=== PATIENT | female | born 1955 | race Caucasian/White ===

== ENCOUNTER 2022-04-25 08:43 | Inpatient (IN) ==
[2022-04-25] MEDS ORDERED: NITROGLYCERIN SL 0.4 MG/TAB TAB ONE (09:00)
[2022-04-25] MEDS ORDERED: LORazepam 1 MG/1 ML SYR IV STA (09:00)
[2022-04-25] MEDS ORDERED: ASPIRIN 81 MG CHEW PO STA (09:00)
[2022-04-25] MEDS ORDERED: NITROGLYCERIN SL 0.4 MG/TAB TAB SL STA (09:00)
[2022-04-25] MEDS ORDERED: ASPIRIN CHEW 324 MG ONE (09:01)
--- NOTE | 2022-04-25 09:01 | Emergency Department Note ---
Impression & Plan Acute ST elevation myocardial infarction (STEMI) of inferior wall ED Provider Note Name: LAQUITA SCHILLING Age: 67 Sex: F Arrives Via: Walk-In Informant: Patient, ED Provider: Carmelo Adler MD Chief Complaint: Chest pain Impression: As per impressions above Medical Decision Makin-year-old female with a history of diabetes and remote smoking history who recently was diagnosed with sinus infection and started on prednisone and Doxy are asked to evaluate a left-sided chest pain radiating to her neck associated with nausea, lightheadedness and mild shortness of breath. EKG on arrival consistent with inferior STEMI. Heart alert was called. Patient is quite anxious, hypertensive. She was given p.o. Ativan and sublingual nitro x3. She was furthermore given aspirin 324 mg p.o. Patient is significantly improved though still a bit anxious. Blood pressure is a bit on the high side but cardiology at bedside and wishes to take directly to [facility]. They will manage Brilinta/heparin and other medications from here. Throughout patient main taining airway patent was transferred to the [facility] for further management. Hospitalist was made aware that patient being taken to [facility] with planned admission afterwards. Patient is a bit hypertensive and tachycardic though there is no evidence of aortic dissection and she has good pulses throughout with unremarkable chest x- ray. I do not feel that CTA is indicated at this time given the other findings much more clearly consistent with acute inferior ND. Furthermore while she did have recent travel symptoms actually started prior to this and I do not feel this is consistent with PE. Labs did end up returning positive troponin following her transfer to the [facility]. Prior Medical Record and Triage/Nursing Notes reviewed by Me Additional history obtained from chart & Differentials:Cardiac ischemia, aortic dissection, pulmonary embolism, pneumothorax, pneumonia, pericarditis, myocarditis, esophageal rupture, GERD, cholecystitis, pancreatitis, musculoskeletal, as well as other pathologies. Vital Signs: reviewed and remarkable for hypertension, tachycardia Interventions: Aspirin 324 mg p.o., Ativan 1 mg p.o., sublingual nitroglycerin x3 Labs:Reviewed and remarkable for elevated troponin Imagin view chest x-ray no evidence of widened mediastinum and normal lung EKG:As per my interpretation. Indication. Chest pain. Normal sinus rhythm at 95 bpm and a QTC of 427. Inferior STEMI with reciprocal depressions. There is no ectopy. No previous EKG for comparison Cardiac/Tele Monitoring: Cardiac Monitoring: An Order was placed for continuous cardiac monitoring. The monitor shows a rate of 90 with a normal sinus rhythm. Consults:Dr. Selby of the interventional cardiology service. Patient taken directly to [facility] Plan: Disposition:Hospitalization. Condition: Critical History of Present Illness:67-year-old female arrives for evaluation of chest pain. Patient notes 3 to 4 days of gradually worsening left-sided chest pain. Heavy in nature and radiates to her left neck. She also notes she has had sinus congestion the last few days. She was seen by her PCP yesterday and started on doxycycline. This morning she notes symptoms were worse she was having some nausea and she was having a little bit of trouble catching her breath. No medications prior to arrival. The exertion made symptoms worse rest seems to make slightly better. Patient denies any history of cardiac disease but does note a history of a cardiac cath a few years ago. She has a history of diabetes and no significant family history of cardiac disease. Patient does have a history of smoking but quit 20 years ago. She denies any tearing pain, back pain, headache, syncope, abdominal pain, vomiting, urinary/bowel symptoms, leg swelling, calf pain or other concerning signs or symptoms. She has no history of PE nor known aortic disorder. ROS: See above HPI for pertinent positives & negatives. A total of 10 systems reviewed and were otherwise negative. Past Medical History: Diabetes Past Surgical History: None Family History: Denies familial history of cardiac disease Social History: Retired contract accountant. . Quit smoking at age 49 Home Medications: Diabetes medications including Jardiance Allergies: Denies drug allergies Vitals:Blood Pressure: 170/100, Pulse 110, RR 22, T 37.0C, O2 98% on RA Physical Exam: GENERAL: Patient is severaly anxious appearing and in moderate distress. EYES: No scleral icterus, unremarkable pupils. ENT: Mucous membranes moist, no nasal congestion. NECK: No masses appreciated, nomeningismus, trachea is midline. RESPIRATORY: Moderate tachypnea though not dyspnea. Clear to auscultation and equal bilaterally. No wheeze, no rhonchi. CARDIOVASCULAR: Tachy.No murmurs, rubs, gallops appreciated. GASTROINTESTINAL: Abdomen soft, non-tender, no peritonitis.Bowel sounds positive.No masses appreciated. BACK: No midline tenderness, no CVA tenderness EXTREMITIES: Normal motion all extremities, no cyanosis, no edema. NEUROLOGIC: Alert and oriented, no acute motor or sensory deficits, no focal weakness, cranial nerves grossly intact. SKIN: No rash, no jaundice, no diaphoresis. PSYCH: Appropriately anxious GCS: 15 ED Course: Times/Reassessments: Multiple repeat evaluations at bedside management of patient throughout ED stay and consulting with maintenance superintendent at bedside. Critical Care: I have personally spent 40 minutes of critical care time in the direct management of this patient. Acute STEMI requiring heart alert and transfer to [facility]. This was a life/limb threatening event. This 40 minutes is in excess of all separately billable procedures. Carmelo Adler MD Past Med/Surg History Social History Smoking Status: Former smoker Tobacco Type: Cigarettes Cigarettes Per Day: 8 x 30 years; Smoking End Date: 2003; Do You Dip or Chew Tobacco: No; Hx Alcohol Use: Yes Alcohol type: beer Hx Substance Use: No Preferred Language: Polish Communication Ability: Effective Hand Rug Cleaner Required: No Beliefs That Will Affect Care: None Current Living Situation: Alone Other Information That Helps Us Care for You: No Feels Safe at Home: Yes Safety Concerns: Feels Safe At This Time Assistive Devices: None Allergies Allergies Allergy/AdvReac Type Severity Reaction Status Date / Time No Known Allergies Allergy Unverified 04/25/22 12:24 Results & Data (ED) Vital Signs Vital Signs - 24 hr 04/25/22 08:54 04/25/22 08:54 04/25/22 09:00 Temperature Temperature Source Pulse Rate 110 H Pulse Rate [Radial] Pulse Rate from SpO2 Sensor Respiratory Rate 24 Respiratory Effort / Characteristics Non-Labored Spontaneous Respiratory Depth Respiratory Pattern Blood Pressure 204/83 H Blood Pressure [Left Arm] Blood Pressure Mean 123 Blood Pressure Mean [Left Arm] Blood Pressure Position [Left Arm] Pulse Oximetry 99 99 Oxygen Delivery Method Room Air Room Air Nasal Cannula Oxygen Flow Rate 2 Sepsis Recent Fever Within 48 Hours No Sepsis New/Unexplained Change in Mental Status N/A Sepsis Action Taken by Nursing No Action Required 04/25/22 09:00 04/25/22 09:05 04/25/22 09:10 Temperature Temperature Source Pulse Rate 108 H 100 H 93 H Pulse Rate [Radial] Pulse Rate from SpO2 Sensor 107 H 102 H Respiratory Rate 21 20 21 Respiratory Effort / Characteristics Respiratory Depth Respiratory Pattern Blood Pressure 217/123 H 191/98 H Blood Pressure [Left Arm] Blood Pressure Mean 154 129 Blood Pressure Mean [Left Arm] Blood Pressure Position [Left Arm] Pulse Oximetry 99 95 Oxygen Delivery Method Oxygen Flow Rate Sepsis Recent Fever Within 48 Hours Sepsis New/Unexplained Change in Mental Status Sepsis Action Taken by Nursing 04/25/22 09:15 04/25/22 09:15 04/25/22 10:29 Temperature 37.0 C Temperature Source Oral Pulse Rate 93 H Pulse Rate [Radial] 86 Pulse Rate from SpO2 Sensor Respiratory Rate 19 14 Respiratory Effort / Characteristics Non-Labored Spontaneous Respiratory Depth Normal Respiratory Pattern Regular Blood Pressure 206/103 H Blood Pressure [Left Arm] 143/84 H Blood Pressure Mean 137 Blood Pressure Mean [Left Arm] 103 Blood Pressure Position [Left Arm] Lying Pulse Oximetry 94 Oxygen Delivery Method Room Air Oxygen Flow Rate Sepsis Recent Fever Within 48 Hours Sepsis New/Unexplained Change in Mental Status Sepsis Action Taken by Nursing Laboratory Data Result diagrams: 04/26/22 06:51 04/26/22 06:51 Lab Results 04/25/22 04/25/22 04/25/22 Range/Units 09:03 09:03 09:03 WBC 9.51 (4.8-10.8) K/ul RBC 4.56 (3.93-5.22) M/uL Hgb 13.3 (12.0-16.0) g/dl Hct 40.0 (34.1-44.9) % MCV 87.7 (80.0-100.0) fL MCH 29.2 (25.0-34.0) pg MCHC 33.3 (32.0-36.0) g/dL RDW Std Deviation 39.8 (36.4-46.3) fL RDW Coeff of Liliana 12.3 (11.5-14.5) % Plt Count 322 (130-400) K/uL MPV 9.8 (9.4-12.3) fL Immature Gran % (Auto) 0.3 % Neut % (Auto) 74.4 % Lymph % (Auto) 16.3 % [place] % (Auto) 7.3 % Eos % (Auto) 1.5 % Baso % (Auto) 0.2 % Neut # (Auto) 7.08 H (1.4-6.5) K/uL Lymph # (Auto) 1.55 (1.2-3.4) K/uL [place] # (Auto) 0.69 (0.24-0.82) K/uL Eos # (Auto) 0.14 (0-0.50) K/uL Baso # (Auto) 0.02 (0-0.2) K/uL Immature Gran # (Auto) 0.03 H (0.00-0.02) K/uL PT 11.3 (9.0-12.0) Seconds INR 1.1 (0.9-1.1) APTT 29.7 (21.0-31.0) Seconds PTT Ratio 1.1 Activ Coag Time Kaolin (94-140) SECONDS Sodium 139 (136-145) mmol/L Potassium 4.0 (3.5-5.1) mmol/L Chloride 104 (98-107) mmol/L Carbon Dioxide 27 (21-32) mmol/L Anion Gap 8 (3-11) BUN 12 (6-23) mg/dl Creatinine 0.65 (0.6-1.2) mg/dl Est Cr Clr Drug Dosing 93.7 ml/min Est GFR ( Amer) 105.7 ml/min Est GFR (Non-Af Amer) 91.2 ml/min BUN/Creatinine Ratio 18.5 (10-20) Glucose 187 H (70-99(Fasting)) mg/dl Calcium 9.7 (8.5-10.1) mg/dl Magnesium 2.2 (1.7-2.4) mg/dl Total Bilirubin 0.6 (0.2-1.0) mg/dl Direct Bilirubin 0.2 (0-0.2) mg/dl AST 52 H (13-39) U/L ALT 22 (7-52) U/L Alkaline Phosphatase 56 (34-104) U/L Troponin I High Sens 6699.6 H* (0-14) pg/ml Total Protein 7.8 (6.0-8.3) gm/dl Albumin 4.5 (3.4-5.0) gm/dl Lipase 9 L (11-82) U/L SARS-CoV-2 (PCR) (Negative) Influenza Type A (PCR) (Neg) Influenza Type B (PCR) (Neg) RSV (RT-PCR) (Neg) 04/25/22 04/25/22 Range/Units 09:09 09:59 WBC (4.8-10.8) K/ul RBC (3.93-5.22) M/uL Hgb (12.0-16.0) g/dl Hct (34.1-44.9) % MCV (80.0-100.0) fL MCH (25.0-34.0) pg MCHC (32.0-36.0) g/dL RDW Std Deviation (36.4-46.3) fL RDW Coeff of Liliana (11.5-14.5) % Plt Count (130-400) K/uL MPV (9.4-12.3) fL Immature Gran % (Auto) % Neut % (Auto) % Lymph % (Auto) % [place] % (Auto) % Eos % (Auto) % Baso % (Auto) % Neut # (Auto) (1.4-6.5) K/uL Lymph # (Auto) (1.2-3.4) K/uL [place] # (Auto) (0.24-0.82) K/uL Eos # (Auto) (0-0.50) K/uL Baso # (Auto) (0-0.2) K/uL Immature Gran # (Auto) (0.00-0.02) K/uL PT (9.0-12.0) Seconds INR (0.9-1.1) APTT (21.0-31.0) Seconds PTT Ratio Activ Coag Time Kaolin 305 H (94-140) SECONDS Sodium (136-145) mmol/L Potassium (3.5-5.1) mmol/L Chloride (98-107) mmol/L Carbon Dioxide (21-32) mmol/L Anion Gap (3-11) BUN (6-23) mg/dl Creatinine (0.6-1.2) mg/dl Est Cr Clr Drug Dosing ml/min Est GFR ( Amer) ml/min Est GFR (Non-Af Amer) ml/min BUN/Creatinine Ratio (10-20) Glucose (70-99(Fasting)) mg/dl Calcium (8.5-10.1) mg/dl Magnesium (1.7-2.4) mg/dl Total Bilirubin (0.2-1.0) mg/dl Direct Bilirubin (0-0.2) mg/dl AST (13-39) U/L ALT (7-52) U/L Alkaline Phosphatase (34-104) U/L Troponin I High Sens (0-14) pg/ml Total Protein (6.0-8.3) gm/dl Albumin (3.4-5.0) gm/dl Lipase (11-82) U/L SARS-CoV-2 (PCR) NEGATIVE (Negative) Influenza Type A (PCR) Negative (Neg) Influenza Type B (PCR) Negative (Neg) RSV (RT-PCR) Negative (Neg) Administered Medications Acetaminophen (Acetaminophen 325 Mg Tab) 650 mg PO Q4H PRN PRN Reason: MILD Pain (Scale 1,2,3) Stop: 05/25/22 10:22 Last Admin: 04/26/22 00:48 Dose: 650 mg Documented By: Admin: 04/25/22 16:19 Dose: 650 mg Documented By: SHAN Aspirin (Aspirin 81 Mg Ectab) 81 mg PO [facility] Stop: 05/26/22 08:59 Last Admin: 04/26/22 08:13 Dose: 81 mg Documented By: TONNY Atorvastatin Calcium (Atorvastatin 40 Mg Tab) [facility] Stop: 05/26/22 08:59 Last Admin: 04/26/22 08:12 Dose: 80 mg Documented By: TONNY Cefdinir (Cefdinir 300 Mg Cap) 300 mg PO BID [facility] Stop: 05/05/22 20:59 Last Admin: 04/26/22 08:12 Dose: 300 mg Documented By: Admin: 04/25/22 19:57 Dose: 300 mg Documented By: DRE Insulin Aspart (Insulin Aspart Per Unit) 0 units SC ACHS [facility] Stop: 05/25/22 11:29 Last Admin: 04/25/22 21:28 Dose: 2 units Documented By: DRE Co-signed By: FLORA Admin: 04/25/22 17:13 Dose: 4 units Documented By: SHAN Co-signed By: SARAH Admin: 04/25/22 13:09 Dose: 6 units Documented By: SHAN Co-signed By: Losartan Potassium (Losartan Potassium 25 Mg Tab) [facility] Stop: 05/26/22 08:59 Last Admin: 04/26/22 08:12 Dose: 25 mg Documented By: TONNY Metoprolol Tartrate (Metoprolol Tartrate 25 Mg Tab) 12.5 mg PO Q8 NOMAN Stop: 05/25/22 13:59 Last Admin: 04/26/22 06:19 Dose: 12.5 mg Documented By: Admin: 04/25/22 21:57 Dose: 12.5 mg Documented By: Admin: 04/25/22 13:41 Dose: 12.5 mg Documented By: SHAN Ondansetron HCl (Ondansetron Inj 2 Mg/Ml 2 Ml Vial) 4 mg IV Q6H PRN PRN Reason: Nausea And Vomiting Stop: 05/25/22 10:22 Last Admin: 04/25/22 13:41 Dose: 4 mg Documented By: SHAN Pantoprazole Sodium (Pantoprazole 40 Mg Tab) 40 mg PO DAILY NOMAN Stop: 05/25/22 12:44 Last Admin: 04/26/22 08:12 Dose: 40 mg Documented By: Admin: 04/25/22 13:41 Dose: 40 mg Documented By: SHAN Ticagrelor (Ticagrelor 90 Mg Tab) 90 mg PO BID [facility] Stop: 05/25/22 20:59 Last Admin: 04/26/22 08:12 Dose: 90 mg Documented By: Admin: 04/25/22 21:58 Dose: 90 mg Documented By: DRE Discontinued Medications Aspirin (Aspirin 81 Mg Chew) 324 mg PO NOW STA Stop: 04/25/22 09:01 Last Admin: 04/25/22 09:05 Dose: Not Given Documented By: LYN Aspirin (Aspirin Chew 324 Mg) Confirm Administered Dose 324 mg .ROUTE .STK-MED ONE Stop: 04/25/22 09:02 Last Admin: 04/25/22 09:04 Dose: 324 mg Documented By: LYN Atropine Sulfate (Atropine Sulfate 0.1 Mg/Ml 10ml Syr) Confirm Administered Dose 1 mg IV .STK-MED ONE Stop: 04/25/22 09:40 Last Admin: 04/25/22 10:15 Dose: Not Given Documented By: MAYA Fentanyl Citrate (Fentanyl Citrate 100 Mcg/2 Ml Vial) Confirm Administered Dose 100 mcg .ROUTE .STK-MED ONE Stop: 04/25/22 09:17 Last Increment: 04/25/22 10:12 Dose: 50 mcg Documented By: MAYA Heparin Sodium (Porcine) (Heparin (Porcine) 1000 Unit/Ml 10 Ml ([facility] Use Only)) Confirm Administered Dose 10,000 units .ROUTE .STK-MED ONE Stop: 04/25/22 09:17 Last Admin: 04/25/22 10:12 Dose: Not Given Documented By: MAYA Heparin Sodium (Porcine) (Heparin Sod (Porcine) 1000 Unit/Ml) Confirm Administered Dose 1,000 units .ROUTE .STK-MED ONE Stop: 04/25/22 09:19 Last Admin: 04/25/22 10:14 Dose: 8,000 units Documented By: MAYA Co-signed By: TLF Heparin Sodium/Sodium Chloride (Heparin In Nss Infusion 1000 Unit/500 Ml (2 U/Ml) Bag) Confirm Administered Dose 3,000 units IV .STK-MED ONE Stop: 04/25/22 09:17 Last Admin: 04/25/22 10:13 Dose: 3,000 units Documented By: MAYA Lorazepam (Lorazepam 1 Mg/1 Ml Syr) 1 mg IV NOW STA; Protocol Stop: 04/25/22 09:01 Last Admin: 04/25/22 13:11 Dose: Not Given Documented By: SHAN Lorazepam (Lorazepam 1 Mg Tab) 1 mg SL NOW STA Stop: 04/25/22 09:05 Last Admin: 04/25/22 09:16 Dose: 1 mg Documented By: LYN Midazolam HCl (Midazolam Hcl 1 Mg/Ml 2ml Vial) Confirm Administered Dose 2 mg .ROUTE .STK-MED ONE Stop: 04/25/22 09:17 Last Increment: 04/25/22 10:13 Dose: 2 mg Documented By: MAYA Midazolam HCl (Midazolam Hcl 1 Mg/Ml 2ml Vial) Confirm Administered Dose 2 mg .ROUTE .STK-MED ONE Stop: 04/25/22 09:45 Last Admin: 04/25/22 10:15 Dose: Not Given Documented By: MAYA Nicardipine HCl (Nicardipine Hcl Inj 2.5 Mg/Ml 10 Ml Amp) Confirm Administered Dose 25 mg .ROUTE .STK-MED ONE Stop: 04/25/22 09:17 Last Admin: 04/25/22 10:13 Dose: 25 mg Documented By: MAYA Nitroglycerin (Nitroglycerin Sl 0.4 Mg/Tab Tab) 0.4 mg SL NOW STA Stop: 04/25/22 09:01 Last Admin: 04/25/22 09:04 Dose: 0.4 mg Documented By: LYN Nitroglycerin (Nitroglycerin Sl 0.4 Mg/Tab Tab) Confirm Administered Dose 0.4 mg .ROUTE .STK-MED ONE Stop: 04/25/22 09:01 Last Admin: 04/25/22 09:04 Dose: Not Given Documented By: LYN Nitroglycerin/Dextrose (Nitroglycerin/D5w 100mcg/Ml 20ml Syr) Confirm Administered Dose 2,000 mcg .ROUTE .STK-MED ONE Stop: 04/25/22 09:17 Last Admin: 04/25/22 10:14 Dose: 2,000 mcg Documented By: MAYA Ticagrelor (Ticagrelor 90 Mg Tab) Confirm Administered Dose 180 mg .ROUTE .STK- MED ONE Stop: 04/25/22 09:36 Last Admin: 04/25/22 10:15 Dose: 180 mg Documented By: MAYA Discharge Plan Visit Data Chief Complaint: Chest Pain Stated Complaint: CHEST PAINS ED Provider: Carmelo Adler Discharge Problem: Acute ST elevation myocardial infarction (STEMI) of inferior wall Patient Disposition: Admitted As Inpatient Discharge Instructions Interventions: ED Discharge Assessment Last Done: 04/25/22 09:33
[2022-04-25] MEDS ORDERED: LORazepam 1 MG TAB SL STA (09:04)
[2022-04-25] MEDS ORDERED: niCARdipine HCL INJ 2.5 MG/ML 10 ML AMP ONE (09:16)
[2022-04-25] MEDS ORDERED: MIDAZOLAM HCL 1 MG/ML 2ML VIAL ONE ×2 (09:16→09:44)
[2022-04-25] MEDS ORDERED: NITROGLYCERIN/D5W 100MCG/ML 20ML SYR ONE (09:16)
[2022-04-25] MEDS ORDERED: fentaNYL citrate 100 MCG/2 ML VIAL ONE (09:16)
[2022-04-25] MEDS ORDERED: HEPARIN (PORCINE) 1000 UNIT/ML 10 ML (CATH LAB USE ONLY) ONE (09:16)
[2022-04-25 09:17] LABS: Basophils # (auto) 0.02 K/uL (0-0.2); Basophils % (auto) 0.2 %; Eosinophils # (auto) 0.14 K/uL (0-0.50); Eosinophils % (auto) 1.5 %; Hemoglobin 13.3 g/dl (12.0-16.0); Immature Granulocytes # (auto) 0.03 K/uL (0.00-0.02); Immature Granulocytes % (auto) 0.3 %; Lymphocytes # (auto) 1.55 K/uL (1.2-3.4); Lymphocytes % (auto) 16.3 %; Mean Corpuscular Hemoglobin 29.2 pg (25.0-34.0); Mean Corpuscular Hgb Conc 33.3 g/dL (32.0-36.0); Mean Corpuscular Volume 87.7 fL (80.0-100.0); Mean Platelet Volume 9.8 fL (9.4-12.3); Monocytes # (auto) 0.69 K/uL (0.24-0.82); Monocytes % (auto) 7.3 %; Neutrophils # (auto) 7.08 K/uL (1.4-6.5); Neutrophils % (auto) 74.4 %; Platelet Count 322 K/uL (130-400); RDW Coefficient of Variation 12.3 % (11.5-14.5); RDW Standard Deviation 39.8 fL (36.4-46.3); Red Blood Count 4.56 M/uL (3.93-5.22); White Blood Count 9.51 K/ul (4.8-10.8)
[2022-04-25] MEDS ORDERED: HEPARIN SOD (PORCINE) 1000 UNIT/ML ONE (09:18)
[2022-04-25 09:29] LABS: INR 1.1 (0.9-1.1); Partial Thromboplastin Ratio 1.1; Partial Thromboplastin Time 29.7 Seconds (21.0-31.0); Prothrombin Time 11.3 Seconds (9.0-12.0)
--- NOTE | 2022-04-25 09:30 | XRay Report ---
SINGLE VIEW CHEST CLINICAL HISTORY: Atypical chest pain. FINDINGS: An AP, portable, upright chest radiograph is obtained. No prior studies are available for c omparison at the time of dictation. The cardiomediastinal silhouette is top normal for projection not ing atherosclerotic calcification of the thoracic aorta. The pulmonary vasculature is noncontrast. Th ere are mild lower lobe opacity. No large pleural effusion or pneumothorax is seen. The skeletal stru ctures are osteopenic. The bony thorax is grossly intact. Calcific tendinopathy is seen in the left s houlder. IMPRESSION: Mild lower lobe opacities likely represent atelectasis. Clinical correlation will be requ ired.. ACT 112: Negative or not required by law. Electronically signed by: Frankie Navarro M.D. 04/25/2022 9:28 AM
[2022-04-25] MEDS ORDERED: TICAGRELOR 90 MG TAB ONE (09:35)
--- NOTE | 2022-04-25 09:38 | Cardiology Consultation ---
Date of Consultation April 25, 2022 Assessment & Plan (1) Acute MA: Presentation consistent with inferior STEMI and recommend proceeding with emergent cardiac catheterization and likely primary PCI. No apparent contraindications to procedure. Discussed risks, benefits, alternatives of procedure with patient and they are willing to proceed. Further recommendations pending findings of coronary angiography. History of Present Illness History of Present Illness 67-year-old woman here with acute chest pain and ECG concerning for acute MA. Patient seen emergently in the ED after heart alert activated on arrival. Denies prior cardiac history. Does state that she had a cardiac catheterization in [facility] approximately a year and a half ago for atypical chest symptoms. Was told "they did not find anything." Cardiac risk factors include type 2 diabetes, dyslipidemia. Non-smoker, no family history of premature CAD. No other active medical issues. She endorses stuttering chest pain for the last 4 to 5 days. Saw her PCP and diagnosed with sinus infection. This morning felt terrible all over with chest pain radiating up into her jaw. ECG on arrival showed sinus rhythm with inferior ST elevations with reciprocal ST depressions anteriorly. Hypertensive up into the 210s. Pain improved with sublingual nitroglycerin x2. Given aspirin, heparin in ED. Social history: Here visiting from [place] for [place]. Works part-time in finance. Previously worked for [employer]. Lifelong non-smoker. Patient History Social History Smoking Status: Former smoker Tobacco Type: Cigarettes Feels Safe at Home: Yes Review of Systems Review of Systems: Not completed in the setting of emergent situation Physical Exam Physical Exam: General: Uncomfortable, flushed HEENT: Sclerae anicteric Lungs: Clear to auscultation anteriorly Cardiac: Regular rate and rhythm, no murmurs. Vascular: 2+ radial Abdomen: Soft, nontender Extremities: Well perfused, no peripheral edema Neuro: Nonfocal Psych: Alert orient x3, normal affect and mood Results & Data ([facility]) Vital Signs (Past 12 Hours) Vital Signs Pulse Resp BP Pulse Ox O2 Del Method O2 Flow Rate 04/25/22 09:15 206/103 H 04/25/22 09:15 93 H 19 04/25/22 09:10 93 H 21 04/25/22 09:05 100 H 20 191/98 H 95 04/25/22 09:00 108 H 21 217/123 H 99 04/25/22 09:00 Nasal Cannula 2 04/25/22 08:54 99 Room Air 04/25/22 08:54 110 H 24 204/83 H 99 Room Air PG Care Time/CCT Total # of Minutes Spent Total Time Spent with Patient: Total time spent is greater than 50% in coordination of care (as documented) at patient's floor/unit and/or counseling patient: Coding Level of Care Code 86756 Initial Inpt Care Lvl 3 Diagnoses Acute MA I21.9
[2022-04-25] MEDS ORDERED: ATROPINE SULFATE 0.1 MG/ML 10ML SYR IV ONE (09:39)
--- NOTE | 2022-04-25 09:39 | Pre Anesthesia Assessment ---
Date of Service April 25, 2022 Pre Sedation Assessment Vital Signs Pulse Resp BP Pulse Ox O2 Del Method O2 Flow Rate 04/25/22 09:15 206/103 H 04/25/22 09:15 93 H 19 04/25/22 09:10 93 H 21 04/25/22 09:05 100 H 20 191/98 H 95 04/25/22 09:00 108 H 21 217/123 H 99 04/25/22 09:00 Nasal Cannula 2 04/25/22 08:54 99 Room Air 04/25/22 08:54 110 H 24 204/83 H 99 Room Air Cardiovascular RRR, no murmur, no edema Respiratory normal respiratory effort, lungs clear to auscultation Pre-Sedation Airway Assessment Smoking Status: Former smoker Hx Sleep Apnea: No Hx Difficult Intubation: No Short, Thick Neck: No Thyromental Distance: > or= 3.5 Finger Breadths Oral Cavity: + WNL Mallampati Class: III Procedure Planning Contraindications for Sedation: none Current Medications Reviewed: Yes Notes The planned sedation has been discussed with the patient. Informed Consent was obtained. I have identified the patient, determined the appropriateness of sedation and have assessed the patient immediately prior to the procedure. All medicine(s) and interventions are by my order.
[2022-04-25 09:44] LABS: Albumin Level 4.5 gm/dl (3.4-5.0); BUN Creatinine Ratio 18.5 (10-20); Bilirubin Direct 0.2 mg/dl (0-0.2); Bilirubin,Total 0.6 mg/dl (0.2-1.0); Calcium 9.7 mg/dl (8.5-10.1); Creatinine Clr Calc Pharmacy 93.7 ml/min; Est GFR (African American) 105.7 ml/min; Est GFR (Non-African American) 91.2 ml/min; Magnesium 2.2 mg/dl (1.7-2.4); Total Protein 7.8 gm/dl (6.0-8.3)
[2022-04-25 09:55] LABS: Troponin I High Sensitivity 6699.6 pg/ml (0-14)
[2022-04-25 10:04] LABS: Influenza A virus by PCR Negative (Neg); Influenza B virus by PCR Negative (Neg); RSV by PCR Negative (Neg); SARS CoV2 RNA(COVID-19) Ceph NEGATIVE (Negative)
[2022-04-25] MEDS ORDERED: ONDANSETRON INJ 2 MG/ML 2 ML VIAL IV PRN ×2 (10:23→11:20)
--- NOTE | 2022-04-25 10:29 | History & Physical Report ---
Date of Service April 25, 2022 Assessment & Plan (1) Acute AK: Plan: Patient presenting with a acute IWMI had a single-vessel drug-eluting stent placed in the mid RCA Patient was placed on dual antiplatelet agents (asa and brilinta chosen) . Her blood pressure is elevated on presentation begun on metoprolol plus cozaar and had pravastatin escalated to atorvastatin for secondary risk prevention (2) Diabetes: Plan: Patient takes Jardiance and Alogliptin, [facility] [place], presenting blood sugar was 187 Patient be placed on a diabetic diet and sliding scale (3) Sinusitis: Plan: will be on po cefdinir Plan scd for DVT prevention History of Present Illness Primary Care Provider: NO PCP 67-year-old female 3 to 4 days of gradually worsening left-sided chest pain. Heavy in quality and radiates to her left neck. She also notes she has had sinus congestion the last few days. She was seen by her PCP yesterday and started on doxycycline. This morning she notes symptoms were worse she was having some nausea and she was having a little bit of trouble catching her breath. initial troponin was markedly elevated to 6699 and was evaluated by interventional cardiology and taken to the Cardiac cath lab nurse. Past Med/Surg History Social History Smoking Status: Former smoker Tobacco Type: Cigarettes Feels Safe at Home: Yes Review of Systems Review of Systems: Mild distress and fatigue no headache, no visual changes did have some sinus pain and drainage no speech or swallowing issues chest pain, heavy or pressure Complains of shortness of breath, without cough or wheezes no abdominal pain, nausea or vomiting, diarrhea or constipation no dysuria, hematuria or frequency no focal joint pain or swelling no back pain, CVA tenderness or radicular pain no bruising, bleeding or rashes no focal signs of weakness or numbness or altered sensation no complaints of anxiety or depression.. Physical Exam Physical Exam: The patient appeared well nourished and normally developed. Vital signs as documented. Head exam is normocephalic atraumatic Neck is without JVD, thyromegaly, or carotid bruits. Lungs are clear to auscultation, no focal loss of breath sounds Cardiac exam, Rhythm is regular.. No murmurs, rubs or gallops. Abdominal exam reveals normal bowel sounds, soft non tender, no masses Extremities right wrist has t band in place, good distal cap refill and sensation Neurologic exam is alert and oriented, no focal loss of strength or sensation Psychologically is without concerns for anxiety or depression.. Results & Data Results & Data ([facility]) Vital Signs (Past 12 Hours) Vital Signs Pulse Resp BP Pulse Ox O2 Del Method O2 Flow Rate 04/25/22 09:15 206/103 H 04/25/22 09:15 93 H 19 04/25/22 09:10 93 H 21 04/25/22 09:05 100 H 20 191/98 H 95 04/25/22 09:00 108 H 21 217/123 H 99 04/25/22 09:00 Nasal Cannula 2 04/25/22 08:54 99 Room Air 04/25/22 08:54 110 H 24 204/83 H 99 Room Air Diagnostic Findings Chest X-Ray 04/25/22 09:00 SINGLE VIEW CHEST CLINICAL HISTORY: Atypical chest pain. FINDINGS: An AP, portable, upright chest radiograph is obtained. No prior studies are available for comparison at the time of dictation. The cardiomediastinal silhouette is top normal for projection noting atherosclerotic calcification of the thoracic aorta. The pulmonary vasculature is noncontrast. There are mild lower lobe opacity. No large pleural effusion or pneumothorax is seen. The skeletal structures are osteopenic. The bony thorax is grossly intact. Calcific tendinopathy is seen in the left shoulder. IMPRESSION: Mild lower lobe opacities likely represent atelectasis. Clinical correlation will be required.. Electronically signed by: Frankie Navarro M.D. 04/25/2022 9:28 AM PG Care Time/CCT Total # of Minutes Spent Total Time Spent with Patient: Total time spent is greater than 50% in coordination of care (as documented) at patient's floor/unit and/or counseling patient: Coding Level of Care Code 42883 Initial Inpt Care Lvl 3 Diagnoses Acute AK I21.9 Diabetes E11.9 Sinusitis J32.9
--- NOTE | 2022-04-25 10:34 | Post Anesthesia Assessment ---
Date of Service April 25, 2022 Post Sedation Assessment Vital Signs Pulse Resp BP Pulse Ox O2 Del Method O2 Flow Rate 04/25/22 09:15 206/103 H 04/25/22 09:15 93 H 19 04/25/22 09:10 93 H 21 04/25/22 09:05 100 H 20 191/98 H 95 04/25/22 09:00 108 H 21 217/123 H 99 04/25/22 09:00 Nasal Cannula 2 04/25/22 08:54 99 Room Air 04/25/22 08:54 110 H 24 204/83 H 99 Room Air Recovery Score Activity: Moves 4 extremities Respiration: Deep Breath/Cough Circulation: +/-20% PreAnes Value Consciousness: Fully Awake Oxygen Saturation: O2 needed for >90% Discharge Sedation Level of Care: Fast Track Phase II Post Sedation Plan On clinical assessment, the patient appears to have tolerated the sedation without complications. Patient is recovering as anticipated. Patient will continue to be monitored by nursing and may be discharged when sedation discharge criteria are met per below protocol. Upon Completions of procedure up to 15 minutes continue every 5 minute vital signs and the P.A.R. score; then discharge to a Phase I or Fast Track to Phase II per the following guidelines: * Discharge Patient to appropriate Phase II area if PAR is 8 or greater or re turn to pre- procedure baseline. The post - procedure orders will be as directed. * If PAR score is less than 8 or not return to pre-procedure baseline then patient will follow Phase I monitoring till PAR is reached for Phase II. The Phase I may be done in procedure room or may call to secure a Phase I area. * If naloxone or flumazenil are used for reversal, hold in Phase I for continued monitoring from when last reversal dose was given for a minimum of 60 minutes or longer pending the nurse and/or physician discretion of patient condition before discharge to Phase II. Please call the Sedation Physician to re-evaluate and complete post-note for discharge to Phase II area. Do NOT discharge from procedure sedation or Phase 1 until post- sedation evaluation note is complete by procedure /sedation MD Sedation Discharge Instructions to be given to the patient at discharge to home.
--- NOTE | 2022-04-25 10:51 | Cardiac Catheterization ---
[facility] Data: Makeup Artistry Instructor Cardiac Status Clinical evaluation leading to the procedure CAD Presenation: STEMI Anginal Classification: CCS IV Diagnostic Physicians Name: Micha Selby MD Closure Device Recommendations: PCI without planned CABG Cardiac Cath Procedure Full Procedure Date April 25, 2022 Pre-Procedure Diagnosis Pre-Procedure Diagnosis: STEMI AUC Score AUC Score: 9 Post-Procedure Diagnosis Post-Procedure Diagnosis: Severe CAD, Successful PCI and Elevated Intracardiac Pressures Procedure(s) Performed Procedure(s) Performed: Coronary Angiography, Left Heart Cath and Drug Eluting Stent Lung Puller Micha Selby MD Buncher Machine(s) Scott Estimated Blood Loss Estimated Blood Loss: 15 Medication(s) Medication(s): Fentanyl, Heparin, Lidocaine 1%, Nicardipine, Nitroglycerin and Versed Medication(s): Ticagrelor Summary of Findings Indication: Inferior STEMI Access: 6 Fr right radial artery Catheters: Hurley, pigtail, JR4 guide Findings: LM -normal caliber, luminal irregularities LAD -medium caliber vessel, tortuous and extends to apex. No significant disease. Gives off 2 small diagonals without disease. Circumflex -medium caliber, 30% mid segment disease, 60 to 70% disease and small distal AV groove circumflex after OM 2. 50% ostial OM2. Circumflex gives off collaterals to RCA RCA -dominant, large caliber, acute 100% latemid occlusion. Right PLB's partially fills via [id number] collaterals. LVEDP -19 -- PCI -- Antithrombotic therapy: Heparin, ticagrelor Procedure: RCA cannulated with JR4 guide Organizational Development Director 50 wire passed across lesion into distal vessel Mid RCA lesion predilated with 2.5 compliant balloon Dilated lesion stented with 3.5 x 18 mm Alvin drug-eluting stent Stent post-dilated with 4.0 noncompliant balloon IC vasodilators administered for spasm Post procedure HUY 3 flow, stent well expanded with minimal residual stenosis and no apparent cardiac complications. Arterial Closure: TR band Summary: 1. Inferior STEMI/100% latemid RCA occlusion 2. Moderate to severe non-culprit coronary artery disease -60 to 70% small distal circumflex 3. Elevated intracardiac filling pressure 4. Successful PCI of mid RCA with single drug-eluting stent (3.5 x 18 mm Telephone; postdilated with 4.0 NC). Recommendations: Admit to PCU for continued monitoring Loaded with ticagrelor 180 mg in Makeup Artistry Instructor Continue dual-antiplatelet therapy for at least 1 year. Trend troponins until peak, Check Echo Uptitrate beta-hue/ARB as BP allows High-dose statin Consult cardiac Rehab Recommend medical management of small distal circumflex. Hemodynamics Rest Ao:: 155/82/122 Final Ao: 141/66/100 LV: 148/19 Recommendations Recommendations: PCI without planned CABG Specimens Specimens: None Radiation Exposure (mGy) 1621 Contrast (mls) 60 Anesthesia Moderate 2801-1981 Procedural Complication(s) None Disposition PCU I attest to the content of the Intraoperative Record and any orders documented therein. Any exceptions are noted below. [facility] Card Cath Procedure Codes Cardiac Catheterization Procedure 1: Cardiovascular Cath Procedures: 09286 Coronaries and LHC (+/-LV) Moderate Sedation Procedure 1: Sedation/Anesthesia: 09852 Mod Sedation by the same physician;Init15 Min Child Age 5 & Up Procedure 2: Sedation/Anesthesia: 28415 Mod Sedation by the same physician; Ea [id number] Minutes Stenting Procedure 1: Cardiovascular Stent Procedures: 28779 Perc transluminal revascularization of acute sub/total occl, aMI PG Care Time/CCT Total # of Minutes Spent Total Time Spent with Patient: Total time spent is greater than 50% in coordination of care (as documented) at patient's floor/unit and/or counseling patient:
[2022-04-25] MEDS ORDERED: DEXTROSE 50% 50 ML SYRINGE IV PRN (11:20)
[2022-04-25] MEDS ORDERED: GLUCOSE 10 TAB/TUBE PO PRN (11:20)
[2022-04-25] MEDS ORDERED: MoRPHine SULFATE 2 MG/ML CARP IV PRN (11:20)
[2022-04-25] MEDS ORDERED: ACETAMINOPHEN 325 MG TAB PO PRN (11:20)
[2022-04-25] MEDS ORDERED: CARBOHYDRATES FOR HYPOGLYCEMIA PO PRN (11:20)
[2022-04-25] MEDS ORDERED: GLUCAGON FOR INJ 1 MG VIAL SQ PRN (11:20)
[2022-04-25] MEDS ORDERED: hydrALAZINE HCL 20 MG/ML VIAL IV PRN (11:20)
[2022-04-25] MEDS ORDERED: METOPROLOL TARTRATE 1 MG/ML VIAL IV PRN (11:20)
[2022-04-25] MEDS ORDERED: ALUMINUM/MAGNESIUM SUSP 30 ML UDC PO PRN (11:20)
[2022-04-25] MEDS ORDERED: NITROGLYCERIN SL 0.4 MG/TAB TAB SL PRN (11:20)
[2022-04-25] MEDS ORDERED: GLUCOSE 40% GEL 15 GM TUBE PO PRN (11:20)
[2022-04-25] MEDS ORDERED: Patient's ALLERGY Info needs ENTERED SCH (11:45)
[2022-04-25] MEDS: INSULIN ASPART PER UNIT SC SCH ×3 (13:09→21:28)
[2022-04-25] MEDS: METOPROLOL TARTRATE 25 MG TAB PO SCH ×2 (13:41→21:57)
[2022-04-25] MEDS: PANTOprazole 40 MG TAB PO SCH (13:41)
[2022-04-25 13:56] LABS: Appearance Urine Clear (Clear); Bacteria Urine Automated Negative (Negative); Bilirubin Urine Negative (Negative); Blood Urine Trace (Negative); Cast Urine Automated 0 /lpf (0-5); Color Urine Yellow; Glucose Urine UA 3+ (Negative); Ketones Urine 3+ (Negative); Leukocyte Esterase Urine Negative (Negative); Nitrite Urine Negative (Negative); Protein Urine Negative (Negative); RBC Urine Automated 0-4 /hpf (0-4); Specific Gravity Urine > 1.045 (1.000-1.030); Urobilinogen Urine Negative (Negative); pH Urine 5.5 (4.5-7.5)
[2022-04-25] MEDS: ACETAMINOPHEN 325 MG TAB PO PRN (16:19)
[2022-04-25] MEDS: CEFDINIR 300 MG CAP PO SCH (19:57)
--- NOTE | 2022-04-25 21:41 | XCELERA ---
[id number]
[2022-04-25] MEDS: TICAGRELOR 90 MG TAB PO SCH (21:58)
[2022-04-26] MEDS: ACETAMINOPHEN 325 MG TAB PO PRN (00:48)
[2022-04-26] MEDS: METOPROLOL TARTRATE 25 MG TAB PO SCH ×2 (06:19→13:46)
[2022-04-26 07:08] LABS: Hematocrit (blood only) 35.5 % (34.1-44.9); Hemoglobin 11.8 g/dl (12.0-16.0); Mean Corpuscular Hgb Conc 33.2 g/dL (32.0-36.0); Mean Corpuscular Volume 87.2 fL (80.0-100.0); Mean Platelet Volume 9.9 fL (9.4-12.3); Platelet Count 267 K/uL (130-400); RDW Coefficient of Variation 12.5 % (11.5-14.5); RDW Standard Deviation 39.9 fL (36.4-46.3); Red Blood Count 4.07 M/uL (3.93-5.22); White Blood Count 9.23 K/ul (4.8-10.8)
[2022-04-26 07:30] LABS: BUN Creatinine Ratio 23.2 (10-20); Calcium 8.7 mg/dl (8.5-10.1); Creatinine Clr Calc Pharmacy 107.8 ml/min; Est GFR (Non-African American) 95.8 ml/min; Magnesium 2.3 mg/dl (1.7-2.4); Potassium 3.5 mmol/L (3.5-5.1)
[2022-04-26 07:41] LABS: Estimated Average Glucose 183 mg/dl
[2022-04-26] MEDS: PANTOprazole 40 MG TAB PO SCH (08:12)
[2022-04-26] MEDS: CEFDINIR 300 MG CAP PO SCH (08:12)
[2022-04-26] MEDS: TICAGRELOR 90 MG TAB PO SCH (08:12)
[2022-04-26] MEDS ORDERED: ATORVASTATIN 40 MG TAB PO SCH (09:00)
[2022-04-26] MEDS ORDERED: LOSARTAN POTASSIUM 25 MG TAB PO SCH (09:00)
[2022-04-26] MEDS ORDERED: ASPIRIN 81 MG ECTAB PO SCH ×2 (09:00)
--- NOTE | 2022-04-26 09:06 | Electrocardiogram Report ---
Test Reason : Blood Pressure : / mmHG Vent. Rate : 088 BPM Atrial Rate : 088 BPM P-R Int : 156 ms QRS Dur : 080 ms QT Int : 370 ms P-R-T Axes : 075 074 060 degrees QTc Int : 447 ms Normal sinus rhythm Acute Inferior infarct Consider right ventricular involvement in acute inferior infarct Abnormal ECG When compared with ECG of 25-APR-2022 08:54, T wave inversion now evident in Inferior leads Confirmed by Fernando Stuart ([id number]) on 04/26/2022 9:06:44 AM Referred By: REFERRED SELF Confirmed By:Fernando Stuart
--- NOTE | 2022-04-26 09:07 | Electrocardiogram Report ---
Test Reason : Blood Pressure : / mmHG Vent. Rate : 095 BPM Atrial Rate : 095 BPM P-R Int : 152 ms QRS Dur : 096 ms QT Int : 340 ms P-R-T Axes : 076 092 089 degrees QTc Int : 427 ms Normal sinus rhythm Rightward axis Acute Inferior infarct Consider right ventricular involvement in acute inferior infarct Abnormal ECG No previous ECGs available Confirmed by Fernando Stuart ([id number]) on 04/26/2022 9:06:55 AM Referred By: REFERRED SELF Confirmed By:Fernando Stuart
--- NOTE | 2022-04-26 09:12 | Electrocardiogram Report ---
Test Reason : Blood Pressure : / mmHG Vent. Rate : 082 BPM Atrial Rate : 082 BPM P-R Int : 168 ms QRS Dur : 078 ms QT Int : 384 ms P-R-T Axes : 071 074 053 degrees QTc Int : 448 ms Sinus rhythm with occasional Premature ventricular complexes Recent Inferior infarct (cited on or before 25-APR-2022) Consider right ventricular involvement in acute inferior infarct Abnormal ECG When compared with ECG of 25-APR-2022 12:27, Premature ventricular complexes are now Present Otherwise no significant change Confirmed by Fernando Stuart ([id number]) on 04/26/2022 9:11:37 AM Referred By: REFERRED SELF Confirmed By:Fernando Stuart
[2022-04-26] MEDS: INSULIN ASPART PER UNIT SC SCH ×2 (09:39→11:56)
--- NOTE | 2022-04-26 11:54 | Cardiology Progress Note ---
Date of Service April 26, 2022 Assessment & Plan (1) Acute ST elevation myocardial infarction (STEMI) of inferior wall: Plan: -- post PCI to mid RCA -- small vessel non-culprit disease. 2. Preserved LV function -- EF 55%, inferior wma 3. DM2 -- A1c 8.0 Chest pain free. Trop peaked. Hemodynamically and electrically stable. No access site complications From a cardiac standpoint OK with discharge this afternoon. Home on: -DAPT with ASA/Ticagrelor -Metoprolol 25mg BID, Losartan 25mg daily -Atorvastatin 80mg Follow-up with new pharmacy billing adjudicator in [place] in 2 weeks. Admission and Anticipated Discharge Date Admission Date: April 25, 2022 Subjective Feeling well this morning. No chest pain. No other new concerns. Tele reviewed -- no events. Sinus in 80-90s Review of Systems Review of Systems: All systems reviewed & are unremarkable except as noted in HPI & below Physical Exam Physical Exam: General: Comfortable HEENT: Sclerae anicteric, Lungs: Clear to auscultation bilaterally Cardiac: Regular rate and rhythm, no murmurs. Vascular: 2+ radial. No hematoma Abdomen: Soft, nontender Extremities: Well perfused, no peripheral edema Neuro: Nonfocal Psych: Alert orient x3, normal affect and mood Results & Data ([facility]) Vital Signs (Past 12 Hours) Vital Signs Temp Pulse Pulse Resp BP BP Pulse Ox 04/26/22 08:00 81 04/26/22 07:38 98.6 F 83 19 152/79 H 96 04/26/22 04:00 98.6 F 89 17 133/68 96 04/26/22 00:25 99.9 F H 91 H 11 L 125/71 97 O2 Del Method 04/26/22 08:00 04/26/22 07:38 Room Air 04/26/22 04:00 Room Air 04/26/22 00:25 Room Air PG Care Time/CCT Total # of Minutes Spent Total Time Spent with Patient: Total time spent is greater than 50% in coordination of care (as documented) at patient's floor/unit and/or counseling patient: Coding Level of Care Code 49731 Subseq Hosp Care Lvl [address] elevation myocardial infarction (STEMI) of inferior wall I21.19
--- NOTE | 2022-04-26 13:42 | Discharge Summary ---
Date of Service April 26, 2022 Admission HPI Per Admitting Provider 67-year-old female 3 to 4 days of gradually worsening left-sided chest pain. Heavy in quality and radiates to her left neck. She also notes she has had sinus congestion the last few days. She was seen by her PCP yesterday and started on doxycycline. This morning she notes symptoms were worse she was having some nausea and she was having a little bit of trouble catching her breath. initial troponin was markedly elevated to 6699 and was evaluated by interventional cardiology and taken to the Cardiac clinical laboratory scientist. Principal Diagnosis acute NV Discharge Exam The patient is awake, alert and oriented 3, well developed and well nourished, normocephalic and atraumatic, lying in bed and in no acute distress. HEENT--PERRL, EOMI, mucous membranes and oropharynx mildly dry Neck--supple. No JVD. No bruits. Thyroid normal, trachea midline, no adenopathy. Heart--normal S1 and S2. No murmurs, rubs or gallops. Lungs--clear bilaterally, no respiratory distress, no accessory muscle use. Abdomen--normal bowel sounds and soft. Mild epigastric and left sided abdominal pain Extremities--no cyanosis or clubbing. No edema. Dermatologic--normal skin turgor, normal color, no abnormal lymph nodes, no rash. Neurologic--cranial nerves II through XII grossly intact. Rheumatologic--normal range of motion. Psychiatric--normal affect. Discharge Data Allergies Allergy/AdvReac Type Severity Reaction Status Date / Time No Known Allergies Allergy Unverified 04/25/22 12:24 Consultations 04/25/22 09:30 ED Decision to Admit Stat 04/25/22 11:20 Consult Cardiology Routine Procedures Performed Operation Date: 04/25/22 09:25 Actual Procedures p Aspiration/PCI w/WING for Stemi(Right) - Alejo Selby MD s Cineradiography w/Routine Exam - Alejo Selby MD s Cath, Left with Cors and Vent - Alejo Selby MD Ordered Studies 04/25/22 09:16 CL Cath Imgs for PACS use only Stat Hospital Course (1) Acute NV: Patient presenting with a acute IWMI She is now status post a single-vessel drug-eluting stent placed in the mid RCA Patient was placed on dual antiplatelet agents (asa and brilinta). Her blood pressure is elevated on presentation begun on metoprolol plus cozaar and had pravastatin escalated to atorvastatin for secondary risk prevention (2) Diabetes: Patient takes Jardiance and Alogliptin, [facility] [place], presenting blood sugar was 187 Patient be placed on a diabetic diet and sliding scale Blood glucose better (3) Sinusitis: will be on po cefdinir for 10 days Plan scd for DVT prevention Total Time Total Time Spent Total Time Spent (In Minutes): d/c Discharge Plan Discharge Items Patient Disposition: Home - Self-Care Reason For Visit: ACUTE NV Discharge Diagnosis: Acute NV Activity: Per Instructions section Lifting: Gradually increase as tolerated Non-emergency contact: Primary Care Provider and Transmission Technician Call non-emergency contact if: you have any medication questions Follow-up/Referrals: PCP,NO [Primary Care Provider] - Diet: Regular Addtl Attending Provider Instructions: Please make appointment to follow up with your automatic silk screen printer at [place] Pending Studies at Discharge: No Stand-Alone Forms: My [facility] [employer], Smoking Cessation Medications and DC Order Prescriptions: New cefdinir 300 mg Capsule 300 mg PO BID 10 Days Qty: 20 0RF Brilinta 90 mg Tablet 90 mg PO BID 90 Days Qty: 180 0RF atorvastatin 40 mg Tablet 80 mg PO QAM 30 Days Qty: 60 0RF losartan 25 mg Tablet 25 mg PO QAM 30 Days Qty: 30 0RF metoprolol tartrate 25 mg Tablet 12.5 mg PO BID 30 Days Qty: 30 0RF Discharge Orders: Discharge Order (Routine); Ordered 04/26/22 Ordered By: José Miguel Pineda Admission Data Admit Date/Time: 04/25/22 10:34 Attending Provider: José Miguel Pineda Admit Provider: Wei Underwood Primary Care Provider: PCP,NO Other Providers: Alejo Selby Coding Level of Care Code D/C DAY MANAGEMENT >30 MINS Diagnoses Acute NV I21.9 Diabetes E11.9 Sinusitis J32.9 Time Spent (min) 35
--- NOTE | 2022-04-26 14:29 | Hospitalist Progress Note ---
Date of Service April 26, 2022 Assessment & Plan (1) Acute ND: Plan: Patient presenting with a acute IWMI She is now status post a single-vessel drug-eluting stent placed in the mid RCA Patient was placed on dual antiplatelet agents (asa and brilinta). Her blood pressure was elevated on presentation, was started on metoprolol plus cozaar and had pravastatin escalated to atorvastatin for secondary risk prevention Appreciate cardiology recs (2) Diabetes: Plan: Patient takes Jardiance and Alogliptin, [facility] [place], presenting blood sugar was 187 Patient be placed on a diabetic diet and sliding scale Blood glucose better this morning (3) Sinusitis: Plan: will be on po cefdinir for 10 days Plan scd for DVT prevention Admission and Anticipated Discharge Date Admission Date: April 25, 2022 Subjective patient seen and examined, feeling well post WING Review of Systems Review of Systems: All systems reviewed are negative, apart from the ones contained in the history. Physical Exam Physical Exam: The patient is awake, alert and oriented 3, well developed and well nourished, normocephalic and atraumatic, lying in bed and in no acute distress. HEENT--PERRL, EOMI, mucous membranes and oropharynx mildly dry Neck--supple. No JVD. No bruits. Thyroid normal, trachea midline, no adenopathy. Heart--normal S1 and S2. No murmurs, rubs or gallops. Lungs--clear bilaterally, no respiratory distress, no accessory muscle use. Abdomen--normal bowel sounds and soft. Mild epigastric and left sided abdominal pain Extremities--no cyanosis or clubbing. No edema. Dermatologic--normal skin turgor, normal color, no abnormal lymph nodes, no rash. Neurologic--cranial nerves II through XII grossly intact. Rheumatologic--normal range of motion. Psychiatric--normal affect. Results & Data Results & Data ([facility]) Vital Signs (Past 12 Hours) Vital Signs Temp Pulse Pulse Resp BP BP Pulse Ox 04/26/22 13:53 98.1 F 85 19 133/68 100/61 96 04/26/22 11:55 98.1 F 85 19 100/61 96 04/26/22 08:00 81 04/26/22 07:38 98.6 F 83 19 152/79 H 96 04/26/22 04:00 98.6 F 89 17 133/68 96 O2 Del Method 04/26/22 13:53 04/26/22 11:55 Room Air 04/26/22 08:00 04/26/22 07:38 Room Air 04/26/22 04:00 Room Air PG Care Time/CCT Total # of Minutes Spent Total Time Spent with Patient: Total time spent is greater than 50% in coordination of care (as documented) at patient's floor/unit and/or counseling patient: Coding Level of Care Code 92510 Subseq Obs Care Lvl 2 Diagnoses Acute ND I21.9 Diabetes E11.9 Sinusitis J32.9 Time Spent (min) 35
== END 2022-04-26 14:47 | disposition home or self-care (01) | DRG 247 ==
LOC: ED 08:43 → 2S 09:33 → SUATTDRO 10:34 → 2S 10:34